=== PATIENT | female | born 2000 | race Caucasian/White ===

== ENCOUNTER 2021-07-02 03:18 | Emergency (ER) | payer SELFPAY ==
--- NOTE | 2021-07-02 03:44 | EDM.PDOC ---
ED HPI GENERAL MEDICAL PROBLEM - General Chief Complaint: General Stated Complaint: abdominal pain Time Seen by Provider: 07/02/21 03:39 Source of Information: Reports: Patient History Limitations: Reports: No Limitations - History of Present Illness INITIAL COMMENTS - FREE TEXT/NARRATIVE: Lynne is a 21 year old female who presents to the ED with c/o nausea, vomiting, diarrhea and abdominal pain. Reports onset of symptoms 2 days ago but initially was "light." Reports throughout the night pain has intensified, prompting ED visit. Reports pain is to bilateral lower quadrants. Describes pain as sharp and intermittent. Reports mild dizziness. Denies any urinary symptoms, fever, chills, headache. Has been drinking some. Decreased appetite. No known sick contacts. Denies any surgical history. Reports LMP 1.5 month ago but does have irregular cycles. She reports she is on OCPs. Onset Date: 06/30/21 Duration: Getting Worse Location: Reports: Abdomen (BLQ) Quality: Reports: Sharp, Stabbing Severity: Severe Improves with: Reports: None Worsens with: Reports: Other (palpation) Associated Symptoms: Reports: Loss of Appetite, Malaise, Nausea/Vomiting, Weakness. Denies: Confusion, Chest Pain, Cough, cough w sputum, Diaphoresis, Fever/Chills, Headaches, Rash, Seizure, Shortness of Breath, Syncope Bilateral Upper Abdomen Pain Score (Numeric/FACES): 10 - Related Data Allergies Allergy/AdvReac Type Severity Reaction Status Date / Time No Known Allergies Allergy Verified 07/02/21 03:29 Home Meds: Home Meds Nitrofurantoin Monohyd/M-Cryst [Macrobid 100 mg Capsule] 100 mg PO BID 4 Days #8 capsule 07/02/21 [Rx] Ondansetron [Zofran ODT] 4 mg PO Q6H PRN #15 tab.dis 07/02/21 [Rx] Past Medical History - Past Health History Medical/Surgical History: Denies Medical/Surgical History Social & Family History - Family History Family Medical History: No Pertinent Family History - Tobacco Use Tobacco Use Status *Q: Former Tobacco User - Alcohol Use Alcohol Use History: No - Recreational Drug Use Recreational Drug Use: No ED ROS GENERAL - Review of Systems Review Of Systems: See Below Constitutional: Reports: Malaise, Weakness, Fatigue, Decreased Appetite. Denies: Fever, Chills HEENT: Reports: No Symptoms Respiratory: Reports: No Symptoms Cardiovascular: Reports: No Symptoms Endocrine: Reports: No Symptoms GI/Abdominal: Reports: Abdominal Pain, Diarrhea, Decreased Appetite, Nausea, Vomiting. Denies: Black Stool, Bloody Stool, Hematemesis, Hematochezia, Melena : Reports: No Symptoms. Denies: Dysuria, Frequency, Urgency Musculoskeletal: Reports: No Symptoms Skin: Reports: No Symptoms Neurological: Reports: No Symptoms Psychiatric: Reports: No Symptoms Hematologic/Lymphatic: Reports: No Symptoms ED EXAM, GENERAL - Physical Exam Exam: See Below Exam Limited By: No Limitations General Appearance: Alert, WD/WN, Mild Distress Throat/Mouth: Normal Inspection, Normal Lips, Normal Teeth, Normal Gums, Normal Oropharynx, Normal Voice, No Airway Compromise Head: Atraumatic, Normocephalic Neck: Normal Inspection, Supple, Non-Tender, Full Range of Motion Respiratory/Chest: No Respiratory Distress, Lungs Clear, Normal Breath Sounds, No Accessory Muscle Use, Chest Non-Tender Cardiovascular: Normal Peripheral Pulses, Regular Rate, Rhythm, No Edema, No Gallop, No JVD, No Murmur, No Rub GI/Abdominal: Normal Bowel Sounds, Soft, No Distention, Tender (BLQ). No: Guarding, Rigid, Rebound Back Exam: Normal Inspection, Full Range of Motion. No: CVA Tenderness (L), CVA Tenderness (R) Extremities: Normal Inspection, Normal Range of Motion, Non-Tender, Normal Capillary Refill, No Pedal Edema Neurological: Alert, Oriented, CN II-XII Intact, Normal Cognition, Normal Gait, Normal Reflexes, No Motor/Sensory Deficits Psychiatric: Normal Affect, Normal Mood Skin Exam: Warm, Dry, Intact, Normal Color, No Rash Lymphatic: No Adenopathy Course - Vital Signs Last Recorded V/S: Last Vital Signs Temp 98.3 F 07/02/21 03:24 Pulse 95 07/02/21 03:24 Resp 16 07/02/21 03:24 BP 117/78 07/02/21 03:24 Pulse Ox 97 07/02/21 03:24 - Orders/Labs/Meds Orders: Active Orders 24 hr Category Date Time Status CULTURE URINE [RM] Stat Lab 07/02/21 03:24 Received Labs: Laboratory Tests 12/14/21 12/14/21 12/14/21 Range/Units 03:24 03:24 03:24 WBC 11.6 H (4.0-11.0) 10^3/uL RBC 4.66 (4.00-5.50) x10^6/uL Hgb 13.8 (12.0-16.0) g/dL Hct 40.0 (37.0-47.0) % MCV 85.8 (83.0-97.0) fL MCH 29.6 (27.0-32.0) pg MCHC 34.5 (32.0-36.0) g/dL RDW Coeff of Norah 12.0 (11.0-15.0) % Plt Count 395 (150-400) 10^3/uL Immature Gran % (Auto) 0.1 (0.0-4.9) % Neut % (Auto) 76.6 H (41-71) % Lymph % (Auto) 16.9 L (24-44) % [place] % (Auto) 5.3 (0-10) % Eos % (Auto) 0.8 (0-6) % Baso % (Auto) 0.3 (0-1) % Neut # (Auto) 8.88 H (1.80-8.00) x10^3/uL Lymph # (Auto) 1.95 (0.60-5.00) 10^3/uL [place] # (Auto) 0.61 (0.00-1.50) 10^3/uL Eos # (Auto) 0.09 (0.00-1.50) 10^3/uL Baso # (Auto) 0.03 (0.00-0.50) 10^3/uL Immature Gran # (Auto) 0.01 (0.00-0.49) 10^3/uL Sodium (136-145) mEq/L Potassium (3.5-5.0) mEq/L Chloride (98-106) mEq/L Carbon Dioxide (21-32) mmol/L BUN (7-18) mg/dL Creatinine (0.6-1.0) mg/dL Est Cr Clr Drug Dosing mL/min Estimated GFR (MDRD) (>=60) mL/min Glucose (75-99) mg/dL Calcium (8.4-10.1) mg/dL Total Bilirubin (0.0-1.0) mg/dL AST (15-37) U/L ALT (12-78) U/L Alkaline Phosphatase (46-116) U/L C-Reactive Protein (0.2-0.8) mg/dL Total Protein (6.4-8.2) g/dL Albumin (3.4-5.0) g/dL Amylase (25-115) U/L Lipase (73-393) U/L Urine Color Yellow (YELLOW) Urine Appearance Cloudy (CLEAR) Urine pH 6.0 (4.5-8.0) Ur Specific [place] >= 1.030 H (1.003-1.020) Urine Protein 30 H (NEGATIVE) mg/dL Urine Glucose (UA) Negative (NEGATIVE) mg/dL Urine Ketones Negative (NEGATIVE) mg/dL Urine Occult Blood Trace-intact H (NEGATIVE) Urine Nitrite Negative (NEGATIVE) Urine Bilirubin Negative (NEGATIVE) Urine Urobilinogen 1.0 (0.2-1.0) EU/dL Ur Leukocyte Esterase Small H (NEGATIVE) Urine RBC 0-5 (0-5) /HPF Urine WBC 50-75 H (0-5) /HPF Ur Squamous Epith Cells Many H (NOT SEEN) /HPF Urine Bacteria Moderate H (NOT SEEN) /HPF Urinalysis Comment Urine HCG, Qual Negative 07/02/21 Range/Units 03:24 WBC (4.0-11.0) 10^3/uL RBC (4.00-5.50) x10^6/uL Hgb (12.0-16.0) g/dL Hct (37.0-47.0) % MCV (83.0-97.0) fL MCH (27.0-32.0) pg MCHC (32.0-36.0) g/dL RDW Coeff of Norah (11.0-15.0) % Plt Count (150-400) 10^3/uL Immature Gran % (Auto) (0.0-4.9) % Neut % (Auto) (41-71) % Lymph % (Auto) (24-44) % [place] % (Auto) (0-10) % Eos % (Auto) (0-6) % Baso % (Auto) (0-1) % Neut # (Auto) (1.80-8.00) x10^3/uL Lymph # (Auto) (0.60-5.00) 10^3/uL [place] # (Auto) (0.00-1.50) 10^3/uL Eos # (Auto) (0.00-1.50) 10^3/uL Baso # (Auto) (0.00-0.50) 10^3/uL Immature Gran # (Auto) (0.00-0.49) 10^3/uL Sodium 141 (136-145) mEq/L Potassium 4.4 (3.5-5.0) mEq/L Chloride 105 (98-106) mEq/L Carbon Dioxide 27 (21-32) mmol/L BUN 14 (7-18) mg/dL Creatinine 0.9 (0.6-1.0) mg/dL Est Cr Clr Drug Dosing 81.79 mL/min Estimated GFR (MDRD) > 60 (>=60) mL/min Glucose 100 H (75-99) mg/dL Calcium 8.8 (8.4-10.1) mg/dL Total Bilirubin 0.4 (0.0-1.0) mg/dL AST 17 (15-37) U/L ALT 26 (12-78) U/L Alkaline Phosphatase 97 (46-116) U/L C-Reactive Protein 0.5 (0.2-0.8) mg/dL Total Protein 8.5 H (6.4-8.2) g/dL Albumin 4.1 (3.4-5.0) g/dL Amylase 54 (25-115) U/L Lipase 62 L (73-393) U/L Urine Color (YELLOW) Urine Appearance (CLEAR) Urine pH (4.5-8.0) Ur Specific [place] (1.003-1.020) Urine Protein (NEGATIVE) mg/dL Urine Glucose (UA) (NEGATIVE) mg/dL Urine Ketones (NEGATIVE) mg/dL Urine Occult Blood (NEGATIVE) Urine Nitrite (NEGATIVE) Urine Bilirubin (NEGATIVE) Urine Urobilinogen (0.2-1.0) EU/dL Ur Leukocyte Esterase (NEGATIVE) Urine RBC (0-5) /HPF Urine WBC (0-5) /HPF Ur Squamous Epith Cells (NOT SEEN) /HPF Urine Bacteria (NOT SEEN) /HPF Urinalysis Comment Urine HCG, Qual Meds: Medications Discontinued Medications Generic Name Dose Route Start Last Admin Trade Name Freq PRN Reason Stop Dose Admin Nitrofurantoin Macrocrystals 1 packet 07/02/21 03:58 Take Home: Nitrofurantoin Monohydrate/Macrocrystalline 100 Mg, 2 Cap Pack PO 07/02/21 03:59 ONETIME ONE Ondansetron HCl 4 mg 07/02/21 03:58 Ondansetron 4 Mg Tab.Dis PO 07/02/21 03:59 ONETIME ONE Departure - Departure Time of Disposition: 04:01 Disposition: Home, Self-Care 01 Condition: Fair Clinical Impression: UTI (urinary tract infection) Qualifiers: Urinary tract infection type: acute cystitis Hematuria presence: without hematuria Qualified Code(s): N30.00 - Acute cystitis without hematuria - Discharge Information *PRESCRIPTION DRUG MONITORING PROGRAM REVIEWED*: Not Applicable *COPY OF PRESCRIPTION DRUG MONITORING REPORT IN PATIENT STANISLAV: Not Applicable Prescriptions: Nitrofurantoin Monohyd/M-Cryst [Macrobid 100 mg Capsule] 100 mg PO BID 4 Days #8 capsule Ondansetron [Zofran ODT] 4 mg PO Q6H PRN #15 tab.dis PRN Reason: Nausea/Vomiting Instructions: Urinary Tract Infection, Adult, [id number] Forms: ED Department Discharge Additional Instructions: - Rest and push fluids - Tylenol or ibuprofen as needed for discomfort - Macrobid (nitrofurantoin) 1 tablet PO every 12 hours for 5 days. Remainder of script can be picked up at [facility] in [place] - Zofran (ondansetron) 1 tablet every 6 hours as needed for nausea/vomiting. This can also be picked up at pharmacy in the morning. You were given a dose in the ED. - Follow up in clinic for recheck if symptoms worsen or do not seem to be improving - Return to ED for emergent needs Sepsis Event Note (ED) - Focused Exam Vital Signs: Vital Signs Temp Pulse Resp BP Pulse Ox 07/02/21 03:24 98.3 F 95 16 117/78 97 - Problem List & Annotations (1) UTI (urinary tract infection) SNOMED Code(s): 58108725 Code(s): N39.0 - URINARY TRACT INFECTION, SITE NOT SPECIFIED Status: Acute Qualifiers: Urinary tract infection type: acute cystitis Hematuria presence: without hematuria Qualified Code(s): N30.00 - Acute cystitis without hematuria - My Orders Last 24 Hours: My Active Orders 07/02/21 03:24 CULTURE URINE [RM] Stat - Assessment/Plan Last 24 Hours: My Active Orders 07/02/21 03:24 CULTURE URINE [RM] Stat Assessment:: UTI Plan: 21 yo presents to the ED with c/o nausea, vomiting, diarrhea and abdominal pain. Lab work reveals WBC 11.3. CRP 0.5. UA positive. Labs otherwise unremarkable. VSS on RA. Patient will be treated with zofran prn nausea/vomiting. She will be started on macrobid for UTI. Did discuss perhaps viral gastroenteritis. Recommend continued routine symptomatic cares. Rest and push fluids. Tylenol or ibuprofen as needed. Follow up for recheck if symptoms worsen or do not seem to be improving.
[2021-07-02 03:53] LABS: CHLORIDE,CL 105 mEq/L (98-106); SODIUM,NA 141 mEq/L (136-145)
[2021-07-02] MEDS: Ondansetron 4 MG Tab.DIS PO ONE (04:04)
[2021-07-02] MEDS: Take Home: Nitrofurantoin Monohydrate/Macrocrystalline 100 MG, 2 Cap Pack PO ONE (04:05)
== END 2021-07-02 04:17 | disposition home or self-care (01) ==
LOC: CC.ED 03:18
DX: N30.00 Acute cystitis without hematuria (principal); R11.2 Nausea with vomiting, unspecified; R19.7 Diarrhea, unspecified; Z87.891 Personal history of nicotine dependence
CPT/HCPCS: 36415; 80053; 81001; 81025; 82150; 83690; 85025; 86140; 87086; 87088; 87186; 99284; A9270-GY